=== PATIENT | female | born 1980 | race Caucasian/White ===

== ENCOUNTER → 2020-02-03 10:00 | Outpatient (BNVA) | payer OTHER, BC, SELFPAY | PROVIDERS: Visit Provider Obstetrics & Gynecology | DX: Z12.4 Encounter for screening for malignant neoplasm of cervix (principal); R39.15 Urgency of urination; Z01.411 Encounter for gynecological examination (general) (routine) with abnormal findings; N92.1 Excessive and frequent menstruation with irregular cycle | CPT/HCPCS: 80053; 81000; 88175 ==

== ENCOUNTER → 2020-05-02 08:00 | Outpatient (BNVA) | payer BC, OTHER, SELFPAY | PROVIDERS: Visit Provider Obstetrics & Gynecology | DX: N92.0 Excessive and frequent menstruation with regular cycle (principal); N85.2 Hypertrophy of uterus; R35.0 Frequency of micturition | CPT/HCPCS: 76830 ==

== ENCOUNTER 2022-05-02 10:44 | Outpatient (CLI) | payer OTHER, SELFPAY ==
--- NOTE | 2022-05-02 10:51 | MM_ITS ---
WS: [id number] SCREENING DIGITAL BREAST TOMOSYNTHESIS MAMMOGRAM WITH CAD HISTORY: SCREENING COMPARISON: None available. Bilateral CC and MLO with tomosynthesis views submitted. Synthetic mammography reviewed. Computer aid ed detection analyzed. Breast composition: The breasts are extremely dense, which lowers the sensitivity of mammography. No suspicious masses, microcalcifications or architectural distortion. MM/[place] [id number] IMPRESSION: BI-RADS: 1-Negative FOLLOW UP: 1 Year Follow-up
== END 2022-05-02 10:45 | disposition home or self-care (01) ==
LOC: RAD 10:45
PROVIDERS: Visit Provider Physician Assistant
DX: Z12.31 Encounter for screening mammogram for malignant neoplasm of breast (principal)
CPT/HCPCS: 77063; 77067

== ENCOUNTER 2025-01-11 06:54 | Outpatient (CLI) | payer OTHER, SELFPAY ==
--- NOTE | 2025-01-11 07:00 | MR_ITS ---
WS: [id number] MRI RIGHT SHOULDER NONCONTRAST TECHNIQUE: Sagittal T2, coronal T1, T2 and proton density imaging. Axial gradient PDE imaging. CLINICAL INFORMATION: RIGHT SHOULDER PAIN COMPARISON: None. FINDINGS: Images somewhat limited due to positioning. Moderate degenerative arthritis AC joint with narrowing of the subacromial space. Subacromial spurring. Impingement distal supraspinatus. Tiny amount of subacromial and subdeltoid fluid. Supraspinatus infraspinatus are intact. Normal teres minor. Subscapularis tendon appears intact. Subcoracoid effusion. Biceps tendon appears intact within the bicipital groove. Tendinopathy with partial high-grade tear intra-articular biceps tendon. Suspected sublabral foramen. Normal bone marrow signal in the glenoid and humerus. MR/MR shoulder RT wo con* [id number] IMPRESSION: 1. Moderate degenerative arthritis AC joint with narrowing of the subacromial space. Subacromial spurring with impingement on the supraspinatus. 2. Rotator cuff appears intact. 3. Suspected partial high-grade tear of the intra-articular biceps tendon. 4. Biceps tendon appears intact in the bicipital groove. 5. Subcoracoid effusion.
== END 2025-01-11 06:55 | disposition home or self-care (01) ==
PROVIDERS: PCP Family Medicine; Visit Provider Family Medicine
DX: M19.011 Primary osteoarthritis, right shoulder (principal); R93.6 Abnormal findings on diagnostic imaging of limbs; M75.41 Impingement syndrome of right shoulder; M75.91 Shoulder lesion, unspecified, right shoulder; S46.211A Strain of muscle, fascia and tendon of other parts of biceps, right arm, initial encounter; X58.XXXA Exposure to other specified factors, initial encounter
CPT/HCPCS: 73221